=== PATIENT | male | born 1960 | race Hispanic/Latino ===

== ENCOUNTER → 2023-10-08 | Outpatient (CLI) | payer OTHER ==
[~2023-10-08] MED LIST: ATOR20TA PO; EMPA25TA PO; EZET10TA48 PO; FLUT16H NASAL; LORA10TA7 PO; METO-408 PO; NITR0.4T50 SL; RANO10005 PO; TAMS-1 PO; VERI2.5T PO
== END | disposition home or self-care (01) ==
LOC: RAH 15:31
PROVIDERS: ATTEND Internal Medicine Cardiovascular Disease
DX: Z13.6 Encounter for screening for cardiovascular disorders (principal)
CPT/HCPCS: 75571